=== PATIENT | female | born 1990 | race Caucasian/White ===

== ENCOUNTER 2019-11-03 17:00 | Inpatient (IN) | payer BC ==
[~2019-11-03] VITALS: Ht 175.3 cm; Wt 123.6 kg
[2019-11-03] MEDS ORDERED: IV NORMAL SALINE 1,000ML 1,000 ML IV ONE (17:45)
--- NOTE | 2019-11-03 17:50 | PHYS DOC ---
Past History Past Medical History: Diabetes, Hypertension, Other (ANNALEE MORENO MD) Adult General Chief Complaint Chief Complaint: NAUSEA/VOMITING/DIARRHEA HPI HPI Patient is a 29-year-old female presents with intermittent daily nausea vomiting and diarrhea with abdominal cramping for days. Patient last vomited 1 hour prior to ED arrival. She is able to keep some clear liquids down. Respiratory diarrhea with episodes earlier this morning. Daily fevers been up to 102 with last fever reported yesterday. No medications and antacids taking care reports vague right upper quadrant pain with tenderness. Patient reports feeling generally weak and fatigued. Dizziness or lightheadedness. There acute symptoms or complaints. No previous abdominal surgeries. Her stated last menstrual period was 10/23/19] (AMADO MACHADO DO) Review of Systems Review of Systems Review symptoms as prescribed. Follow other review symptoms are negative.[] All other systems were reviewed and found to be within normal limits, except as documented in this note. (AMADO MACHADO DO) Family History Family History Mother Sister- DM (ANNALEE MORENO MD) Current Medications Current Medications Current Medications Medications (Trade) Dose Ordered Sig/Bree Start Time Stop Time Status Last Admin Dose Admin Ondansetron HCl (Zofran) 4 mg 1X ONCE 11/03/19 17:45 11/03/19 17:46 UNV Sodium Chloride 1,000 ml @ 1,000 mls/hr 1X ONCE 11/03/19 17:45 11/03/19 18:44 UNV 11/03/19 17:42 1,000 MLS/HR (AMADO MACHADO DO) Physical Exam Physical Exam Constitutional: Well developed, well nourished, generalized flushing.. [] HENT: Normocephalic, atraumatic, bilateral external ears normal, oropharynx moist, no oral exudates, nose normal. [] Eyes: PERRLA, EOMI, conjunctiva normal, no discharge. [] Neck: Normal range of motion, no tenderness, supple, no stridor. [] Cardiovascular:Heart rate regular rhythm, no murmur [] Lungs & Thorax: Bilateral breath sounds clear to auscultation [] Abdomen: Bowel sounds normal, soft, habitus compromising exam, increased bowel sounds, vague upper abdominal pain/tenderness.. [] Skin: Warm, dry, no erythema, no rash. [] Back: No tenderness, no CVA tenderness. [] Extremities: No tenderness, no cyanosis, no edema. [] Neurologic: Alert and oriented X 3, normal motor function, normal sensory function, no focal deficits noted. [] Psychologic: Affect normal, judgement normal, mood normal. [] (AMADO MACHADO DO) EKG EKG [] (AMADO MACHADO DO) EKG My interpretation EKG shows a sinus tachycardia and 3 bpm. No findings acute STEMI with contralateral changes. (ANNALEE MORENO MD) Radiology/Procedures Radiology/Procedures [] (AMADO MACHADO DO) Course & Med Decision Making Course & Med Decision Making Pertinent Labs and Imaging studies reviewed. (See chart for details) [Patient with vomiting and diarrhea. Tachycardic and hypertensive on exam. IV fluids and antiemetics given. Workup in progress. Care will be endorsed to oncoming ERP at 1800.] (AMADO MACHADO DO) Course & Med Decision Making Patient still tachycardic and unable to produce adequate urine at shift change. Persistent generalized abdomen pain. Reviewed exposure history. No exposure to ill individuals, animals, travel or bad foods. No recent antibiotics. was overseas in [place] but he return in September. They are on city water. Discussions with treatment option plans with patient, patient's have elected to be admitted to Dr. Whitten for short stay. Pt. admitted to Dr. Whitten for further eval. tx, Potassium supplementation, and hydration. Serial glucose checks. Pt. admitted Room 120 1. Abdomen pain 2. Gastroenteritis-nausea vomiting diarrhea 3. Dehydration 4. Hypokalemia critical 2.7 5. Diabetes- glucose 317 (?New onset) 6. Elevated creatinine 1.5 7. Elevated lactic acid 3.3 8. Elevated AST and ALT 117-123 9. Elevated hemoglobin 19.1 10. Morbid obesity 11. Elevated Lym, Baker, and Eosinophils differential 12. Hx HTN (ANNALEE MORENO MD) Dragon Disclaimer Dragon Disclaimer This electronic medical record was generated, in whole or in part, using a voice recognition dictation system. (AMADO MACHADO DO) Departure Departure: Impression: Primary Impression: Abdominal pain Additional Impression: Nausea vomiting and diarrhea Disposition: HOME/RESIDENCE PRIOR TO ADM Condition: STABLE Referrals: PCP,JAY JAY (PCP) Amina Disclaimer This chart was dictated in whole or in part using Voice Recognition software in a busy, high-work load, and often noisy Emergency Department environment. It may contain unintended and wholly unrecognized errors or omissions. (ANNALEE MORENO MD) Problem Qualifiers AMADO MACHADO DO Nov 03, 2019 17:50 ANNALEE MORENO MD Nov 03, 2019 18:47
[2019-11-03 17:55] LABS: BASO % 0 % (0-3); EOS # 0.4 x10^3/uL (0.0-0.7); EOS % 5 % (0-3); HEMATOCRIT 53.5 % (36.0-47.0); HEMOGLOBIN 19.1 g/dL (12.0-15.5); LYMPH # 1.4 x10^3/uL (1.0-4.8); LYMPH % 16 % (24-48); MEAN CORPUSCULAR HEMOGLOBIN 33 pg (25-35); MEAN CORPUSCULAR HGB CONC 36 g/dL (31-37); MEAN CORPUSCULAR VOLUME 92 fL (79-100); MONO # 1.1 x10^3/uL (0.0-1.1); MONO % 12 % (0-9); NEUT # 6.3 x10^3uL (1.8-7.7); NEUT % 68 % (31-73); PLATELET COUNT 230 x10^3/uL (140-400); RED BLOOD COUNT 5.82 x10^6/uL (3.50-5.40); RED CELL DISTRIBUTION WIDTH 12.9 % (11.5-14.5); WHITE BLOOD COUNT 9.2 x10^3/uL (4.0-11.0)
[2019-11-03 18:11] LABS: ALBUMIN 3.9 g/dL (3.4-5.0); ALBUMIN/GLOBULIN RATIO 0.9 (1.0-1.7); CALCIUM 8.6 mg/dL (8.5-10.1); CREATININE 1.5 mg/dL (0.6-1.0); GFR 41.7; TOTAL BILIRUBIN 0.8 mg/dL (0.2-1.0); TOTAL PROTEIN 8.2 g/dL (6.4-8.2)
[2019-11-03 18:13] LABS: POTASSIUM 2.7 mmol/L (3.5-5.1)
[2019-11-03] MEDS ORDERED: ONDANSETRON PF 4 MG/2 ML VIAL. IVP ONE ×2 (18:15→18:30)
[2019-11-03] MEDS ORDERED: IV RINGERS SOLUTION,LACTATED 1,000 ML IV ONE (18:30)
[2019-11-03] MEDS ORDERED: ACETAMINOPHEN 325 MG TABLET PO PRN (18:30)
[2019-11-03] MEDS ORDERED: POTASSIUM CL 40MEQ IN 0.9%NACL 1,000 ML IV ONE (18:30)
[2019-11-03] MEDS ORDERED: CIPROFLOXACIN 400MG PREMIX 200 ML IV ONE (18:30)
[2019-11-03] MEDS ORDERED: ONDANSETRON PF 4 MG/2 ML VIAL. IV PRN (18:30)
[2019-11-03] MEDS ORDERED: metroNIDAZOLE 500 MG TABLET PO ONE (18:30)
--- NOTE | 2019-11-03 18:43 | EKG ---
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
[2019-11-03] MEDS ORDERED: BISMUTH SUBSALICYLATE 262 MG/15 ML ORAL.SUSP 236ML BOTTLE. PO PRN (18:45)
[2019-11-03 19:51] VITALS: BP 129/88
[2019-11-03] MEDS ORDERED: CLOM50TA16 PO (19:57)
[2019-11-03] MEDS ORDERED: LISI40TA PO (19:57)
[2019-11-03] MEDS: metroNIDAZOLE 500 MG TABLET PO SCH (21:19)
[2019-11-03 23:22] VITALS: BP 110/77
--- NOTE | 2019-11-04 03:55 | RAD ---
ACUTE ABDOMEN SERIES INDICATION: Nausea and vomiting. COMPARISON STUDY: None. FINDINGS: Lungs: Normal lung volume. No pulmonary mass or consolidation. The tracheobronchial tree and hilar structures are normal. Pleura: No pleural effusion or pneumothorax. Heart and Mediastinum: The cardiomediastinal silhouette is normal. The great vessels of the thorax are normal. Abdomen: Nonobstructive bowel gas pattern. No free air. Bones and Soft Tissues: The bones and soft tissues are within normal limits. IMPRESSION: Nonobstructive bowel gas pattern. No focal airspace disease. Electronically signed by: Juni Salguero MD (11/04/2019 3:52 AM) [facility]
[2019-11-04 05:46] VITALS: BP 102/69
[2019-11-04 06:49] LABS: CALCIUM 7.5 mg/dL (8.5-10.1); GFR 66.5
[2019-11-04 06:51] LABS: POTASSIUM 2.8 mmol/L (3.5-5.1)
[2019-11-04 06:54] LABS: BASO % 1 % (0-3); EOS # 0.5 x10^3/uL (0.0-0.7); EOS % 6 % (0-3); HEMATOCRIT 44.3 % (36.0-47.0); HEMOGLOBIN 15.6 g/dL (12.0-15.5); LYMPH # 2.1 x10^3/uL (1.0-4.8); LYMPH % 27 % (24-48); MEAN CORPUSCULAR HEMOGLOBIN 32 pg (25-35); MEAN CORPUSCULAR HGB CONC 35 g/dL (31-37); MEAN CORPUSCULAR VOLUME 91 fL (79-100); MONO % 14 % (0-9); NEUT # 3.9 x10^3uL (1.8-7.7); NEUT % 52 % (31-73); PLATELET COUNT 172 x10^3/uL (140-400); RED BLOOD COUNT 4.87 x10^6/uL (3.50-5.40); RED CELL DISTRIBUTION WIDTH 12.5 % (11.5-14.5); WHITE BLOOD COUNT 7.5 x10^3/uL (4.0-11.0)
[2019-11-04] MEDS ORDERED: POTASSIUM CHLORIDE 40 MEQ in IV NORMAL SALINE 1,000ML 1,000 ML IV SCH (07:45)
[2019-11-04] MEDS: POTASSIUM CL 40MEQ IN 0.9%NACL 1,000 ML IV SCH ×2 (08:02→18:14)
[2019-11-04] MEDS: metroNIDAZOLE 500 MG TABLET PO SCH ×3 (08:02→21:07)
[2019-11-04] MEDS: CIPROFLOXACIN 400MG PREMIX 200 ML IV SCH ×2 (08:02→21:08)
[2019-11-04] MEDS: POTASSIUM BICARB 20 MEQ EFFERVESCENT TABLET. FT SCH ×2 (08:03→11:30)
[2019-11-04] MEDS ORDERED: FLU VAX QS 2019-20 (36MOS+)/PF 0.5 ML SYRINGE. VAX IM ONE (09:00)
[2019-11-04 10:39] VITALS: BP 128/88
[2019-11-04 14:01] LABS: TRIGLYCERIDES 511 mg/dL (0-150); VLDLC 102 mg/dL (0-40)
[2019-11-04 14:02] LABS: HDLC 23 mg/dL (40-60)
[2019-11-04 14:30] LABS: CALCIUM 7.7 mg/dL (8.5-10.1); GFR 66.5; POTASSIUM 3.1 mmol/L (3.5-5.1)
[2019-11-04 15:00] VITALS: BP 126/88
[2019-11-04] MEDS ORDERED: POTASSIUM CHLORIDE 20 MEQ TABLET.ER. PO ONE ×2 (15:00→21:00)
--- NOTE | 2019-11-04 16:40 | HP ---
ADMIT DATE: 11/03/2019 HISTORY OF PRESENT ILLNESS: The patient is a 29-year-old female patient who came to the emergency room with a complaint of intermittent and daily nausea and vomiting and diarrhea with abdominal cramping for days. Her symptoms started last Saturday with diarrhea, on Saturday morning she started having some nausea, felt dizzy and started vomiting in the afternoon of Saturday. She also complained of crampy abdominal pain, had also had intermittent fever with a temperature that went up to 102 Fahrenheit. She has ____ medication, antacid taking care of her symptoms. She reports vague right upper quadrant pain with tenderness. She also felt generally weak and fatigued, dizzy and lightheaded. No previous abdominal surgeries. Her last menstrual period was on 10/23/2019. She was extensively evaluated in the emergency room. Her lab work showed that she was definitely markedly dehydrated. She has marked hypokalemia with a potassium 2.7. She was dehydrated. Her liver enzymes slightly elevated also. Her lipase was normal at 151. She was started on IV fluid together with IV ciprofloxacin as well as Flagyl together with bismuth subsalicylate and was admitted for further evaluation and treatment. She is . Her does not have any symptoms similar to what she has. She has not taken any antibiotic recently. She lives within the city boundaries and use only bottled water. She has never been outside of [facility]. PAST MEDICAL HISTORY: Significant for hypertension and polycystic ovary syndrome. PAST SURGICAL HISTORY: Significant for leg reconstruction surgery on both lower extremities. She has also tonsillectomy and adenoidectomy. ALLERGIES: She is allergic to AUGMENTIN. FAMILY HISTORY: She has half-brother and half-sisters that are seemingly healthy. She does not know her biological father. Her mother is alive and has Graves' disease, hypertension, diabetes mellitus. SOCIAL HISTORY: She is , has no children. She is an ex-smoker, quit 3 years ago. She does not drink alcohol or use any recreational drugs. She works in a [employer]. MEDICATIONS: She is currently on following medications: She is on lisinopril 40 mg once a day and clomiphene citrate 50 mg daily for infertility. REVIEW OF SYSTEMS: The patient denies any blurring of vision, cataract, glaucoma or macular degeneration. Denied any earache, tinnitus or sensorineural deafness. Denied any nosebleeds, stuffy nose or postnasal drip. Denied any sore throat, sore tongue, toothache, hoarseness of voice or difficulty swallowing. Did complain of recurrent bouts of nausea, vomiting as well as diarrhea, but denied any hematemesis, melena or hematochezia. Denied any dysuria, frequency or hematuria. Denied any chest pain. Did complain of abdominal pain, cramping in nature. Denied any chest pain, shortness of breath, orthopnea or paroxysmal nocturnal dyspnea. Denied any cough, phlegm or hemoptysis. Did complain of dizziness and lightheadedness. PHYSICAL EXAMINATION: GENERAL: On arrival to the emergency room, she looked well and was clearly in no apparent distress. No pallor, jaundice, cyanosis. No lymphadenopathy or thyromegaly. No jugular venous distention. No limb edema. VITAL SIGNS: Her heart rate was 123, blood pressure was 130/89, temperature was 98.2, respiratory rate was 16, and oxygen saturation was 96%. HEAD, EYES, EARS, NOSE AND THROAT: Normocephalic, atraumatic. NECK: Supple. HEART: Showed normal first and second heart sounds. No gallop or murmur. CHEST: Clear to auscultation. No crepitation or rhonchi. ABDOMEN: Distended, soft, nontender. No guarding or rigidity. No organomegaly. All hernial orifice intact. Bowel sounds normal. NEUROLOGIC: She was awake, alert, responding appropriately. All cranial nerves intact. EXTREMITIES: She moves extremities without difficulty. LABORATORY DATA: On admission showed serum sodium of 132, potassium 2.7, chloride 95, bicarbonate 22, anion gap of 15, BUN 18, creatinine 1.5, estimated GFR was 41 mL per minute. Her glucose was 317, calcium was 8.6. Total bilirubin and alkaline phosphatase normal. AST and ALT were slightly elevated. Her total protein was 8.2, albumin was 3.9. Lipase was 151. White cell count was 9200, hemoglobin 19, hematocrit 54, MCV 92, and platelet count of 230,000 with normal manual differential. Her test was negative. Her ____ showed that the lung volumes are normal. No pulmonary masses or consolidation. The tracheobronchial tree and hilar structures are normal. There is no pleural effusion or pneumothorax. Heart, the cardiomediastinal silhouette is normal. The great vessels of thorax are normal. The abdomen showed nonobstructive bowel gas pattern, no free air. Bones and soft tissue are within normal limits. ASSESSMENT AND PLAN: The patient was admitted with acute gastroenteritis, marked dehydration and severe hypokalemia, also impaired liver enzymes. We will continue with IV fluid in the form of normal saline with 40 mEq of potassium. Continue with ciprofloxacin as well as Flagyl. We will monitor her lab work closely and decide on further management accordingly. NATHALY MORENO MD DR: RANDALL/juli JOB#: [id number] / [id number]
[2019-11-04] MEDS ORDERED: LOPERAMIDE 2 MG CAPSULE PO PRN (18:15)
[2019-11-04 20:20] VITALS: BP 125/87
[2019-11-04] MEDS: LACTOBACILLUS RHAMNOSUS GG 1 CAPSULE. PO SCH (21:07)
--- NOTE | 2019-11-04 22:23 | PN ---
DATE: 11/04/2019 SUBJECTIVE: The patient is resting, slightly propped up in bed, in no apparent respiratory distress. She is awake, alert, responding appropriately. On questioning her, she continued to have recurrent bouts of loose bowel movement. She has had no further nausea or vomiting and no abdominal pain. PHYSICAL EXAMINATION: GENERAL: When I examined her this afternoon, she looked well and was clearly in no apparent respiratory distress, pale, but no jaundice, cyanosis or thyromegaly. No jugular venous distention. No limb edema. VITAL SIGNS: Her heart rate was 91, blood pressure was 128/88, temperature was 97.2, respiratory rate was 18 and oxygen saturation was 95%. HEAD, EYES, EARS, NOSE AND THROAT: Showed normocephalic, atraumatic. NECK: Supple. CARDIAC: Normal first and second heart sounds with no gallop or murmur. CHEST: Clear to auscultation. No crepitation or rhonchi. ABDOMEN: Distended, soft, nontender. NEUROLOGIC: She is awake, alert, responding appropriately. All cranial nerves intact. She moves extremities without difficulty. She ambulates without assistance or assistive devices. Her intake was 1200, output was 1300. LABORATORY DATA: Her lab work this morning showed a serum sodium of 135, potassium 2.8, chloride 101, bicarbonate 25, anion gap of 9, BUN 14, creatinine 1, estimated GFR was 66 mL per minute. Her glucose was 95, calcium was 7.5. White cell count was 7500, hemoglobin 15.6, hematocrit 44, MCV 91, and platelet count of 172,000 with normal manual differential. ASSESSMENT: Acute gastroenteritis, dehydration, acute kidney injury, hypokalemia, hyperglycemia with probably new onset type 2 diabetes, lactic acidosis, nonalcoholic steatohepatitis, morbid obesity, hypertension and polycystic ovary syndrome. PLAN: To continue with IV Cipro and Flagyl. Continue with IV fluid. We will repeat her lab works tomorrow and if that has subsided and her potassium stabilized, she can be discharged home. NATHALY MORENO MD DR: RANDALL/juli JOB#: [id number] / [id number]
[2019-11-04 23:25] VITALS: BP 128/87
[2019-11-05 00:06] LABS: HEMOGLOBIN A1C 9.5 % (4.8-5.6)
[2019-11-05] MEDS: POTASSIUM CL 40MEQ IN 0.9%NACL 1,000 ML IV SCH ×2 (03:45→11:53)
[2019-11-05 05:27] VITALS: BP 108/67
[2019-11-05 06:28] LABS: HEMATOCRIT 40.5 % (36.0-47.0); HEMOGLOBIN 14.4 g/dL (12.0-15.5); RED BLOOD COUNT 4.43 x10^6/uL (3.50-5.40); RED CELL DISTRIBUTION WIDTH 12.6 % (11.5-14.5); WHITE BLOOD COUNT 6.8 x10^3/uL (4.0-11.0)
[2019-11-05 06:51] LABS: ALBUMIN 2.9 g/dL (3.4-5.0); ALBUMIN/GLOBULIN RATIO 0.9 (1.0-1.7); CALCIUM 7.6 mg/dL (8.5-10.1); CREATININE 0.9 mg/dL (0.6-1.0); GFR 75.1; POTASSIUM 3.2 mmol/L (3.5-5.1); TOTAL BILIRUBIN 0.7 mg/dL (0.2-1.0)
[2019-11-05] MEDS ORDERED: POTASSIUM CHLORIDE 20 MEQ TABLET.ER. PO SCH (08:00)
[2019-11-05] MEDS: LACTOBACILLUS RHAMNOSUS GG 1 CAPSULE. PO SCH (08:33)
[2019-11-05] MEDS: CIPROFLOXACIN 400MG PREMIX 200 ML IV SCH (08:33)
[2019-11-05] MEDS: metroNIDAZOLE 500 MG TABLET PO SCH ×2 (08:33→13:15)
[2019-11-05 11:24] VITALS: BP 125/81
[2019-11-05] MEDS ORDERED: POTASSIUM CHLORIDE 20 MEQ TABLET.ER. PO ONE (15:45)
[2019-11-05] MEDS ORDERED: METR500T PO (16:01)
[2019-11-05] MEDS ORDERED: GLIM1TAB PO (16:01)
--- NOTE | 2019-11-05 16:20 | DS ---
DATE OF DISCHARGE: 11/05/2019 HOSPITAL COURSE: The patient is a 29-year-old female patient who was admitted with recurrent bouts of nausea, vomiting, abdominal cramping and diarrhea. It has been going on for almost 5 days, has also had fever up to 102 Fahrenheit. On arrival, she was found to be markedly dehydrated, hypokalemic. Her potassium was only 2.7. Her creatinine was 1.5, down to 0.9 and her BUN was 18 down to 10. She was started on IV fluid in the form of normal saline and potassium as well as Cipro and Flagyl. Her blood sugar was markedly elevated at 317 initially. Her lactic acid was high also at 3.3. She has elevated AST and ALT, and she did actually very well. On questioning her today, she has had no further abdominal pain, no nausea or vomiting. Her diarrhea has largely subsided, although has not completely resolved. She expressed a desire to be discharged home and therefore we switched her to oral antibiotic in the form of Cipro and Flagyl as well as some oral potassium. PHYSICAL EXAMINATION: GENERAL: When I saw her this afternoon, she looked well and was clearly in no apparent respiratory distress. No pallor, jaundice, cyanosis or thyromegaly. No jugular venous distension. No lower limb edema. VITAL SIGNS: Her heart rate was 90, blood pressure was 125/81, temperature was 97.8, respiratory rate 20, and oxygen saturation was 98%. The rest of clinical exam is stable. Her intake over the last 24 hours was 1200. LABORATORY DATA: As of this morning showed a serum sodium 136, potassium 3.2, chloride 104, bicarbonate 24, anion gap of 8, BUN 10, creatinine 0.9, estimated GFR was 75 mL per minute. Her glucose 183, calcium was 7.6. Total bilirubin and alkaline phosphatase is normal. AST, ALT slightly elevated. Total protein 6, albumin 2.9. Her white cell count was 6800, hemoglobin 14, hematocrit 40, MCV 91, and platelet count of 185,000. DISCHARGE MEDICATIONS: She was discharged home to continue on ciprofloxacin 500 mg twice a day for 7 more days, Flagyl 500 mg 3 times a day for 1 week. She was discharged also on potassium 20 mEq twice a day and Amaryl 1 mg once a day. She may return to work on 11/09/2019. She was given also a script for basic metabolic profile to be done on Saturday. FINAL DISCHARGE DIAGNOSES: Acute gastroenteritis, hypokalemia, acute kidney injury that has resolved. She has also diagnosis of hypertension and polycystic ovary syndrome. NATHALY MORENO MD DR: RANDALL/juli JOB#: [id number] / [id number]
== END 2019-11-05 16:35 | disposition home or self-care (01) | DRG 391 ==
LOC: ER 17:00 → 1 SOUTH 18:30
PROVIDERS: ADMIT Internal Medicine; ATTEND Internal Medicine
DX: K52.9 Noninfective gastroenteritis and colitis, unspecified (principal); N17.0 Acute kidney failure with tubular necrosis; Z68.41 Body mass index [BMI] 40.0-44.9, adult; E87.2 Acidosis; I10 Essential (primary) hypertension; E86.0 Dehydration; E87.6 Hypokalemia; E66.01 Morbid (severe) obesity due to excess calories; E28.2 Polycystic ovarian syndrome; K75.81 Nonalcoholic steatohepatitis (NASH); Z83.3 Family history of diabetes mellitus; Z87.891 Personal history of nicotine dependence; Z82.49 Family history of ischemic heart disease and other diseases of the circulatory system
CPT/HCPCS: 36415; 74022; 80048; 80053; 80061; 82947; 83036; 83605; 83690; 84702; 85025; 85027; 86705; 86709; 86803; 87040; 87045; 87177; 87340; 87493; 93005; 96361; 96365; 96368; 96375; J0744; J2405; J7120; 99285-25; J7030

== ENCOUNTER → 2019-11-09 | Outpatient (CLI) | payer BC ==
[2019-11-05 11:24] VITALS: BP 125/81
[~2019-11-09] MED LIST: CLOM50TA16 PO; GLIM1TAB PO; LISI40TA PO; METR500T PO
[2019-11-09 10:57] LABS: CALCIUM 8.4 mg/dL (8.5-10.1); GFR 66.5; POTASSIUM 3.1 mmol/L (3.5-5.1)
== END | disposition home or self-care (01) ==
LOC: LAB 10:26
PROVIDERS: ATTEND Internal Medicine
DX: N17.9 Acute kidney failure, unspecified (principal); E87.6 Hypokalemia
CPT/HCPCS: 36415; 80048